=== PATIENT | female | born 1995 ===

== ENCOUNTER 2018-11-07 18:13 | Emergency (ER) | payer MEDICAID ==
[2018-11-07] MEDS ORDERED: Sodium Chloride 0.9% 1,000 ML IV ONE (19:33)
--- NOTE | 2018-11-07 19:53 | C.PDOC ---
History Of Present Illness 23 year old female presents to ED complaining of chest tightness, constant since this morning, associated with SOB increased with deep inspiration. Patient denies abdominal pain, leg pain, or . In the ED patient looks well, no distress, engaging, cooperative. Denies palpitations. No fevers. Time Seen by Provider: 11/07/18 19:07 Chief Complaint (Nursing): Chest Pain History Per: Patient History/Exam Limitations: no limitations Onset/Duration Of Symptoms: Hrs Current Symptoms Are (Timing): Still Present Past Medical History Reviewed: Historical Data, Nursing Documentation, Vital Signs Vital Signs: Last Vital Signs Temp 98.7 F 11/07/18 18:42 Pulse 114 H 11/07/18 18:42 Resp 20 11/07/18 18:42 BP 130/74 11/07/18 18:42 Pulse Ox 100 11/07/18 18:42 Family History: States: No Known Family Hx - Social History Hx Alcohol Use: No Hx Substance Use: No - Immunization History Hx Tetanus Toxoid Vaccination: Yes Hx Influenza Vaccination: Yes Hx Pneumococcal Vaccination: No Review Of Systems Except As Marked, All Systems Reviewed And Found Negative. Cardiovascular: Positive for: Chest Pain Respiratory: Positive for: Shortness of Breath Gastrointestinal: Negative for: Abdominal Pain Musculoskeletal: Negative for: Leg Pain Physical Exam - Physical Exam Appears: Non-toxic, No Acute Distress, Other (Anxious) Skin: Warm, Dry Head: Atraumatic, Normacephalic Eye(s): bilateral: Normal Inspection, PERRL, EOMI Oral Mucosa: Moist Neck: Normal ROM Chest: Symmetrical Cardiovascular: Rhythm Regular (Tachycardic), No Murmur Respiratory: Normal Breath Sounds, No Rales, No Rhonchi, No Wheezing Gastrointestinal/Abdominal: Soft, No Tenderness Extremity: Bilateral: Atraumatic, Normal Color And Temperature, Normal ROM Neurological/Psych: Oriented x3, Normal Speech Gait: Steady ED Course And Treatment O2 Sat by Pulse Oximetry: 100 (RA) Pulse Ox Interpretation: Normal Medical Decision Making Medical Decision Making: Plan: --EKG --Chest X-Ray --IV Fluids --Urinalysis Patient asymptomatic at this time. Disposition Counseled Patient/Family Regarding: Need For Followup, Rx Given - Disposition Disposition: HOME/ ROUTINE Disposition Time: 21:22 Condition: STABLE Instructions: Palpitations (DC) Forms: [facility] ([place]), Work Excuse, General Discharge Instructions, Accompanied To ED By: - POA Present On Arrival: None - Clinical Impression Clinical Impression: Palpitation - Scribe Statement The provider has reviewed the documentation as recorded by the Scribe Yeimy Epperson Provider Attestation: All medical record entries made by the Scribe were at my direction and personally dictated by me. I have reviewed the chart and agree that the record accurately reflects my personal performance of the history, physical exam, medical decision making, and the department course for this patient. I have also personally directed, reviewed, and agree with the discharge instructions and disposition.
[2018-11-07 20:08] LABS: SQUAMOUS EPITHIAL 1 /hpf (0-5); URINE BILIRUBIN NEGATIVE (NEGATIVE); URINE BLOOD NEGATIVE (NEGATIVE); URINE CLARITY Clear (Clear); URINE COLOR Yellow (YELLOW); URINE GLUCOSE (UA) NORMAL (Normal); URINE LEUKOCYTE ESTERASE TRACE Leu/uL (Negative); URINE PROTEIN NEGATIVE (NEGATIVE); URINE UROBILINOGEN NORMAL mg/dL (0.2-1.0)
[2018-11-07 20:09] LABS: HCG,QUALITATIVE URINE NEGATIVE (NEGATIVE)
[2018-11-07] MEDS ORDERED: Sodium Chloride 0.9% 1,000 ML ONE (20:13)
[2018-11-07 21:04] VITALS: RESP 18
[2018-11-07 21:36] VITALS: BP 118/79; PULSE 108; TEMP 98.6; O2SAT 98
--- NOTE | 2018-11-08 09:10 | RAD ---
Date of service: 11/07/2018 HISTORY: chest pain COMPARISON: None available. FINDINGS: LUNGS: No active pulmonary disease. PLEURA: No significant pleural effusion identified, no pneumothorax apparent. CARDIOVASCULAR: No aortic atherosclerotic calcification present. Normal cardiac size. No pulmonary vascular congestion. OSSEOUS STRUCTURES: No significant abnormalities. VISUALIZED UPPER ABDOMEN: Normal. OTHER FINDINGS: None. IMPRESSION: No acute cardiopulmonary disease appreciated.
--- NOTE | 2018-11-09 14:49 | CARD ---
APPROVED REPORT Date of service: 11/07/2018 EKG Measurement Heart [id number] AR 130P51 [id number] <Conclusion> Sinus tachycardia Otherwise normal ECG
--- NOTE | 2018-11-09 14:49 | CARD ---
APPROVED REPORT Date of service: 11/07/2018 EKG Measurement Heart [id number] [place] 142P44 [id number] <Conclusion> Sinus tachycardia Otherwise normal ECG
== END 2018-11-07 21:36 | disposition home or self-care (01) ==
LOC: C.ER 18:13
DX: R00.2 Palpitations (principal)
CPT/HCPCS: 71045; 81001; 84703; 93005; 96360; 99285; J7030